=== PATIENT | female | born 1945 | race Caucasian/White ===

== ENCOUNTER 2023-12-04 18:15 | Emergency (ER) | payer OTHER ==
[~2023-12-04] VITALS: Ht 152.4 cm; Wt 82.1 kg
[2023-12-04] MEDS ORDERED: Tdap Vaccine 0.5 ML SYR (Adult Vaccine) IM ONE (19:25)
[2023-12-04] MEDS ORDERED: CEPHALEXIN500 M1 PO (21:17)
== END 2023-12-04 21:19 | disposition home or self-care (01) ==
LOC: ED 18:15
DX: S51.812A Laceration without foreign body of left forearm, initial encounter (principal); S50.312A Abrasion of left elbow, initial encounter; S60.812A Abrasion of left wrist, initial encounter; E78.5 Hyperlipidemia, unspecified; X58.XXXA Exposure to other specified factors, initial encounter; Y93.52 Activity, horseback riding; Y92.89 Other specified places as the place of occurrence of the external cause; Y99.8 Other external cause status